=== PATIENT | female | born 1995 | race Hispanic/Latino ===

== ENCOUNTER 2023-03-12 16:53 | Emergency (ER) | payer OTHER ==
--- NOTE | 2023-03-12 18:23 | RAD REPORT ---
EXAM DESCRIPTION: CT - Soft Tissue Neck Wo Contr CLINICAL HISTORY: sore throat, fb sensation COMPARISON: No comparisons TECHNIQUE All CT scans are performed using dose optimization technique as appropriate and may includ e automated exposure control or mA/KV adjustment according to patient size. FINDINGS: Nasopharyngeal tissues are normal in appearance. Fossa Rosenmller are normal. Parapharyngeal fat triangles are symmetric. Tongue base structures are normal. Epiglottis and aryepiglottic folds are normal. Piriform sinuses are well aerated. The vocal cords are normal in appearance. Salivary glands are normal in appearance. Upper lung amador are clear. Included intracranial contents are unremarkable. Mucous retention cyst left maxillary sinus. IMPRESSION: No acute soft tissue abnormality within the neck. No radiopaque foreign body.
--- NOTE | 2023-03-12 18:39 | EDPHYS ---
Physician Documentation [facility] Name: Joy Manriquez Age: 27 yrs Sex: Female : 1995 Arrival Date: 03/12/2023 Time: 16:53 Bed IW1 Private MD: ED Physician Eloisa Hunter HPI: 03/12 17:22 This 27 yrs old Female presents to ER via Ambulatory with complaints of Ear jmm Pain, Sore Throat. 17:22 The patient presents with pain. This is a 27 year old female with no chronic medical jmm conditions that presents to the ED with complaints of left ear pain which has improved since taking topical abx. Patient also complains of left sided throat pain since last week after eating hard candy. States 3 years ago she swallowed a staple and is concerned she may have a retained fb. . Historical: - Allergies: 17:21 No Known Allergies; ld1 - Home Meds: 17:21 None [Active]; ld1 - PMHx: 17:21 None; ld1 - PSHx: 17:21 None; ld1 - Immunization history:: Adult Immunizations up to date, Client reports having NOT received the Covid vaccine. - Social history:: Smoking status: Patient denies any tobacco usage or history of. Patient/guardian denies using alcohol. ROS: 17:22 Constitutional: Negative for fever, chills, and weight loss, Cardiovascular: Negative jmm for chest pain, palpitations, and edema, Respiratory: Negative for shortness of breath, cough, wheezing, and pleuritic chest pain. 17:22 ENT: Positive for sore throat. 17:22 All other systems are negative. Exam: 17:22 Constitutional: This is a well developed, well nourished patient who is awake, alert, jmm and in no acute distress. Head/Face: atraumatic. Eyes: EOMI, no conjunctival erythema appreciated 17:22 Neck: Trachea midline, Supple Chest/axilla: Normal chest wall appearance and motion. Cardiovascular: Regular rate and rhythm. No edema appreciated Respiratory: Normal respirations, no respiratory distress appreciated Abdomen/GI: Non distended Back: Normal ROM Skin: General appearance color normal MS/ Extremity: Moves all extremities, no obvious deformities appreciated, no edema noted to the lower extremities Neuro: Awake and alert Psych: Behavior is normal, Mood is normal, Patient is cooperative and pleasant 17:22 ENT: Posterior pharynx: is normal, swelling, is not appreciated, erythema, is not appreciated. Vital Signs: 17:09 BP 117 / 78; Pulse 88; Resp 18; Temp 97.8(TE); Pulse Ox 98% on R/A; ld1 MDM: 17:22 Patient medically screened. [facility] 03/12 17:29 Order name: Soft Tissue Neck Wo Contr; Complete Time: 18:25 EDMS Administered Medications: No medications were administered Disposition Summary: 03/12/23 18:38 Discharge Ordered Location: Home [facility] Condition: Stable [facility] Diagnosis - Unspecified superficial injuries of throat, initial Encounter [facility] Followup: [facility] - With: Eloisa Hernandez MD - When: 2 - 3 days - Reason: Recheck today's complaints, Continuance of care, Re-evaluation by your physician Discharge Instructions: - Discharge Summary Sheet [facility] - Sore Throat [facility] Forms: - Medication Reconciliation Form [facility] - Thank You Letter [facility] - Antibiotic Education [facility] - Prescription Opioid Use [facility] Addendum: 03/14/2023 19:07 STAFF ATTESTATION: The patient's history, exam findings, diagnostics and a summary of s d2 any interventions or procedures was reviewed in detail with the ED ELLIE. I confirm the diagnosis as documented by the ELLIE and I agree with the care plan articulated in the disposition section with regards to our discussion of the patient's case. Eloisa Hunter MD. Signatures: Dispatcher [employer] EDMS Chandrakant Rivas PA PA Bridgett Obregon RN RN ld1 Eloisa Hunter MD MD sd2 Corrections: (The following items were deleted from the chart) 03/12 17:26 17:23 IV Saline Lock ordered. [facility] : 17:23 Soft Tissue Neck W/Contr+CT.RAD.BRZ ordered. EDNE EDMS
--- NOTE | 2023-03-12 18:39 | ER ---
Nurse's Notes [facility] Name: Joy Manriquez Age: 27 yrs Sex: Female : 1995 Arrival Date: 03/12/2023 Time: 16:53 Bed IW1 Private MD: Diagnosis: Unspecified superficial injuries of throat, initial Encounter Presentation: 03/12 17:18 Chief complaint: Patient states: Left ear pain X 1 week. Eating hard candy on Thursday - ld1 pain to my throat after eating candy. Coronavirus screen: At this time, the client does not indicate any symptoms associated with coronavirus-19. Ebola Screen: No symptoms or risks identified at this time. Initial Sepsis Screen: Does the patient meet any 2 criteria? No. Patient's initial sepsis screen is negative. Does the patient have a suspected source of infection? No. Patient's initial sepsis screen is negative. Risk Assessment: Do you want to hurt yourself or someone else? Patient reports no desire to harm self or others. Onset of symptoms was March 12, 2023 at 17:18. 17:18 Method Of Arrival: Ambulatory ld1 17:18 Acuity: STEPHON 4 ld1 Triage Assessment: 17:18 General: Appears in no apparent distress. comfortable, Behavior is calm, cooperative, ld1 appropriate for age. Pain: Complains of pain in left ear. Historical: - Allergies: 17:21 No Known Allergies; ld1 - Home Meds: 17:21 None [Active]; ld1 - PMHx: 17:21 None; ld1 - PSHx: 17:21 None; ld1 - Immunization history:: Adult Immunizations up to date, Client reports having NOT received the Covid vaccine. - Social history:: Smoking status: Patient denies any tobacco usage or history of. Patient/guardian denies using alcohol. Screenin:54 [facility] ED Fall Risk Assessment (Adult) History of falling in the last 3 months, ld1 including since admission No falls in past 3 months (0 pts). Abuse screen: Denies threats or abuse. Denies injuries from another. Nutritional screening: No deficits noted. Tuberculosis screening: No symptoms or risk factors identified. Assessment: 17:17 General: Appears in no apparent distress. comfortable, Behavior is calm, cooperative, ld1 appropriate for age. Pain: Complains of pain in left ear Pain does not radiate. Pain currently is 4 out of 10 on a pain scale. Quality of pain is described as throbbing. Neuro: Level of Consciousness is awake, alert, obeys commands, Oriented to person, place, time, situation. Cardiovascular: Capillary refill < 3 seconds Patient's skin is warm and dry. Respiratory: Airway is patent Respiratory effort is even, unlabored. GI: Abdomen is round non-distended. : No signs and/or symptoms were reported regarding the genitourinary system. EENT: Reports pain in left ear. Derm: No signs and/or symptoms reported regarding the dermatologic system. Musculoskeletal: No signs and/or symptoms reported regarding the musculoskeletal system. 18:54 Reassessment: See triage assessment. ld1 Vital Signs: 17:09 BP 117 / 78; Pulse 88; Resp 18; Temp 97.8(TE); Pulse Ox 98% on R/A; ld1 ED Course: 16:55 Patient arrived in ED. rg4 16:56 Chandrakant Rivas PA is PHCP. [facility] 16:56 Sterling Drake MD is Attending Physician. [facility] 17:18 Triage completed. ld1 17:18 Arm band placed on right wrist. ld1 18:11 Soft Tissue Neck Wo Contr In Process Unspecified. EDMS 18:36 Eloisa Hunter MD is Attending Physician. [facility] 18:36 Eloisa Hernandez MD is Referral Physician. [facility] 18:54 Patient has correct armband on for positive identification. Placed in gown. Bed in low ld1 position. Side rails up X2. Pulse ox on. NIBP on. Door closed. Noise minimized. Warm blanket given. 18:54 No provider procedures requiring assistance completed. Patient did not have IV access ld1 during this emergency room visit. Administered Medications: No medications were administered Medication: 18:54 VIS not applicable for this client. ld1 Outcome: 18:38 Discharge ordered by . [facility] 18:54 Discharged to home ambulatory. ld1 18:54 Condition: stable 18:54 Discharge instructions given to patient, Instructed on discharge instructions, follow up and referral plans. Demonstrated understanding of instructions, follow-up care. 18:59 Patient left the ED. ld1 Signatures: Dispatcher [employer] EDMS Mickail, JOSELINE Stallings Rubi rg4 Bridgett Nam, RN RN ld1
[2023-03-12 19:03] VITALS: BP 117/78; TEMP 97.8; O2SAT 98
== END 2023-03-12 18:59 | disposition home or self-care (01) ==
LOC: ER 16:53
DX: S10.10XA Unspecified superficial injuries of throat, initial encounter (principal)
CPT/HCPCS: 70490; 99283